=== PATIENT | female | born 1990 | race American Indian/Alaskan Native ===

== ENCOUNTER 2018-08-24 09:32 | Emergency (ER) | payer OTHER ==
[2018-08-24 10:05] LABS: Basophils % (Auto) 0.4 % (0.0-1.8); Eosinophils # (Auto) 0.3 K/mm3 (0.0-0.4); Eosinophils % (Auto) 3.5 % (0.0-4.3); Hematocrit 40.3 % (30.3-42.9); Lymphocytes # (Auto) 2.2 K/mm3 (1.2-5.4); Lymphocytes % (Auto) 26.5 % (13.4-35.0); Mean Corpuscular HGB Conc 35 % (30-34); Mean Corpuscular Volume 94 fl (79-97); Monocytes # (Auto) 0.6 K/mm3 (0.0-0.8); Monocytes % (Auto) 7.6 % (0.0-7.3); Platelet Count 247 K/mm3 (140-440); Red Blood Count 4.27 M/mm3 (3.65-5.03); Red Cell Distribution Width 14.1 % (13.2-15.2)
[2018-08-24] MEDS ORDERED: TORADOL IV ONE (10:46)
[2018-08-24] MEDS ORDERED: MORPHINE IV ONE (10:46)
[2018-08-24] MEDS ORDERED: NACL 0.9% 1000 ML 1,000 ML IV ONE (10:46)
[2018-08-24] MEDS ORDERED: ZOFRAN IV ONE (10:46)
--- NOTE | 2018-08-24 10:52 | Emergency Department Report ---
ED Abdominal Pain HPI - General Chief Complaint: Urogenital-Female Stated Complaint: ABD PAIN/VAGINAL BLEEDING Time Seen by Provider: 08/24/18 10:12 Source: patient, EMS Mode of arrival: Stretcher Limitations: No Limitations - History of Present Illness Initial Comments: Mrs. Jacob is a 27 yo female without significant past medical history who presents with severe sudden onset of RLQ pain/right groin pain. She also has vaginal bleeding. She does not recall if this is normal time for her menses. Sharp severe 10/10 pain worse with movement and palpation. No preceding fever, vomiting, diarrhea. MD Complaint: abdominal pain -: Sudden, This morning Location: RLQ Severity: severe Severity scale (0 -10): 10 Quality: sharp Consistency: constant Improves With: nothing Worsens With: nothing Associated Symptoms: other (vaginal bleeding) - Related Data Previous Rx's Medication Instructions Recorded Last Taken Type Ibuprofen [Motrin 800 MG tab] 800 mg PO Q8HR PRN #15 tablet 08/24/18 Unknown Rx Promethazine [Phenergan] 25 mg PO Q6HR PRN #10 tab 08/24/18 Unknown Rx traMADol [Ultram 50 MG tab] 50 mg PO Q4HR PRN #10 tablet 08/24/18 Unknown Rx Allergies Allergy/AdvReac Type Severity Reaction Status Date / Time No Known Allergies Allergy Unverified 08/24/18 09:42 ED Review of Systems ROS: Stated complaint: ABD PAIN/VAGINAL BLEEDING Other details as noted in HPI Comment: All other systems reviewed and negative Constitutional: denies: fever, malaise Respiratory: denies: cough Cardiovascular: denies: chest pain Gastrointestinal: abdominal pain ED Past Medical Hx - Past Medical History Previous Medical History?: Yes Additional medical history: 2 abortions - Surgical History Past Surgical History?: Yes - Social History Smoking Status: Current Every Day Smoker Substance Use Type: Alcohol - Medications Home Medications: Home Medications Medication Instructions Recorded Confirmed Last Taken Type Ibuprofen [Motrin 800 MG tab] 800 mg PO Q8HR PRN #15 tablet 08/24/18 Unknown Rx Promethazine [Phenergan] 25 mg PO Q6HR PRN #10 tab 08/24/18 Unknown Rx traMADol [Ultram 50 MG tab] 50 mg PO Q4HR PRN #10 tablet 08/24/18 Unknown Rx ED Physical Exam - General Limitations: No Limitations General appearance: alert, other (appears in pain) - Head Head exam: Present: atraumatic, normocephalic - Eye Eye exam: Present: normal appearance - ENT ENT exam: Present: mucous membranes moist - Neck Neck exam: Present: normal inspection, full ROM - Respiratory Respiratory exam: Present: normal lung sounds bilaterally. Absent: respiratory distress, wheezes, rales, rhonchi - Cardiovascular Cardiovascular Exam: Present: regular rate, normal rhythm, normal heart sounds. Absent: systolic murmur, diastolic murmur, rubs, gallop - GI/Abdominal GI/Abdominal exam: Present: soft, normal bowel sounds. Absent: distended, tenderness, guarding, rebound - Extremities Exam Extremities exam: Present: normal inspection - Back Exam Back exam: Present: normal inspection - Neurological Exam Neurological exam: Present: alert, oriented X3 - Psychiatric Psychiatric exam: Present: normal affect, normal mood - Skin Skin exam: Present: warm, dry, intact, normal color. Absent: rash ED Course Vital Signs 08/24/18 08/24/18 08/24/18 09:45 09:59 11:00 Temperature 97.7 F Pulse Rate 93 H 80 Respiratory 20 14 20 Rate Blood Pressure 118/84 Blood Pressure 121/82 [Right] O2 Sat by Pulse 100 99 Oximetry 08/24/18 08/24/18 08/24/18 11:04 12:22 13:15 Temperature Pulse Rate 72 76 87 Respiratory 18 16 14 Rate Blood Pressure Blood Pressure 119/69 108/58 116/56 [Right] O2 Sat by Pulse 99 98 98 Oximetry ED Medical Decision Making - Lab Data Result diagrams: 08/24/18 09:57 08/24/18 09:47 Laboratory Results - last 24 hr 08/24/18 08/24/18 08/24/18 09:47 09:57 09:57 WBC 8.5 RBC 4.27 Hgb 14.0 Hct 40.3 MCV 94 MCH 33 H MCHC 35 H RDW 14.1 Plt Count 247 Lymph % (Auto) 26.5 Swain % (Auto) 7.6 H Eos % (Auto) 3.5 Baso % (Auto) 0.4 Lymph # 2.2 Swain # 0.6 Eos # 0.3 Baso # 0.0 Seg Neutrophils % 62.0 Seg Neutrophils # 5.2 Sodium 139 Potassium 4.0 Chloride 105.2 Carbon Dioxide 20 L Anion Gap 18 BUN 11 Creatinine 0.8 Estimated GFR > 60 BUN/Creatinine Ratio 14 Glucose 92 Calcium 9.1 HCG, Qual HCG, Quant < 2 Urine Color Urine Turbidity Urine pH Ur Specific [place] Urine Protein Urine Glucose (UA) Urine Ketones Urine Blood Urine Nitrite Urine Bilirubin Urine Urobilinogen Ur Leukocyte Esterase Urine WBC (Auto) Urine RBC (Auto) U Epithel Cells (Auto) Urine Bacteria (Auto) Urine Mucus Blood Type 08/24/18 08/24/18 08/24/18 09:57 09:57 10:55 WBC RBC Hgb Hct MCV MCH MCHC RDW Plt Count Lymph % (Auto) Swain % (Auto) Eos % (Auto) Baso % (Auto) Lymph # Swain # Eos # Baso # Seg Neutrophils % Seg Neutrophils # Sodium Potassium Chloride Carbon Dioxide Anion Gap BUN Creatinine Estimated GFR BUN/Creatinine Ratio Glucose Calcium HCG, Qual Negative HCG, Quant Urine Color Yellow Urine Turbidity Clear Urine pH 8.0 H Ur Specific [place] 1.011 Urine Protein <15 mg/dl Urine Glucose (UA) Neg Urine Ketones Neg Urine Blood Lg Urine Nitrite Neg Urine Bilirubin Neg Urine Urobilinogen < 2.0 Ur Leukocyte Esterase Neg Urine WBC (Auto) < 1.0 Urine RBC (Auto) 5.0 U Epithel Cells (Auto) 1.0 Urine Bacteria (Auto) 2+ Urine Mucus Few Blood Type O POSITIVE - Radiology Data Radiology results: report reviewed interpreted by me: Transvaginal ultrasound remarkable for complex 3 cm left ovarian cyst, 2 small uterine fibroids, CT abdomen and pelvis negative for acute inflammatory process confirmation of complex left ovarian cyst with possible hydrosalpinx - Medical Decision Making Ms. Jacob presents with pelvic pain due to ovarian cyst and uterine fibroids possible dysmenorrhea. Referred to OBGYN labs reviewed all within normal limits, including normal white blood cell count and negative test Critical care attestation.: If time is entered above; I have spent that time in minutes in the direct care of this critically ill patient, excluding procedure time. ED Disposition Clinical Impression: Ovarian cyst, Uterine fibroid, Dysmenorrhea Disposition: TO HOME OR SELFCARE Is pt being admited?: No Does the pt Need Aspirin: No Condition: Stable Instructions: Dysmenorrhea (ED), Ovarian Cyst (ED), Uterine Fibroids (ED) Prescriptions: Ibuprofen [Motrin 800 MG tab] 800 mg PO Q8HR PRN #15 tablet PRN Reason: Pain , Severe (7-10) Promethazine [Phenergan] 25 mg PO Q6HR PRN #10 tab PRN Reason: Nausea traMADol [Ultram 50 MG tab] 50 mg PO Q4HR PRN #10 tablet PRN Reason: Pain Referrals: CAROLA BLACK MD [Primary Care Provider] - 3-5 Days
[2018-08-24 11:01] LABS: BUN/Creatinine Ratio 14; Blood Urea Nitrogen 11 mg/dL (7-17); Calcium 9.1 mg/dL (8.4-10.2); Hemolysis Index 26
[2018-08-24 11:59] LABS: Bacteria,Urine 2+ /HPF (Negative); Bilirubin,Urine NEG (Negative); Blood,Urine LG (Negative); Color,Urine Yellow (Yellow); Mucus,Urine FEW /HPF; Protein,Urine <15 mg/dL mg/dL (Negative); Urobilinogen,Urine < 2.0 mg/dL (<2.0); WBC,Urine < 1.0 /HPF (0.0-6.0)
[2018-08-24 13:19] VITALS: BP 116/56
--- NOTE | 2018-08-24 13:25 | Cat Scan Report ---
PROCEDURE: CT ABDOMEN PELVIS W CON TECHNIQUE: Computerized axial tomography of the abdomen and pelvis was performed after the IV inject ion of iodinated nonionic contrast. HISTORY: RLQ pain vaginal bleeding COMPARISONS: None . FINDINGS: Visualized lower thorax: No significant abnormality. Liver: Normal size and attenuation. Spleen: Normal size and attenuation. Gallbladder and biliary system: Normal. Pancreas: Normal. Adrenals: Normal. Kidneys: There is no hydronephrosis bilaterally. There is symmetric excretion seen on the delayed chang ges. The distal right ureter is not well delineated. Along the course of the distal right ureter there is a focal calcification with central lucency favored to be related to phlebolith, as there is no proximal ureteral obstruction. GI tract: No appendiceal inflammation. No bowel obstruction or inflammation . Lymph nodes and mesentery: Normal. Vasculature: Normal.. Bladder: Normal. Reproductive organs: Complex 2 cm left ovarian cyst. Possible left hydrosalpinx Peritoneum: No free fluid. Musculoskeletal structures: No significant abnormality. Other: None . IMPRESSION: No acute inflammatory process is seen. No hydronephrosis or definitive urolithiasis. Focal calcification in the right pelvis is favored to b e related to a pelvic phlebolith . Complex 2 cm left ovarian cyst. Possible left hydrosalpinx This document is electronically signed by Shoshana Mckeon MD., Aug 24 2018 01:23:01 PM ET
--- NOTE | 2018-08-24 13:34 | Ultrasound Report ---
PROCEDURE: US TRANSVAGINAL TECHNIQUE: Real-time transvaginal sonography in multiple planes of the pelvis was performed with chang ge documentation. Grayscale, color flow Doppler imaging and velocity spectral waveform analysis of th e ovaries was employed (duplex imaging). HISTORY: RLQ pain vaginal bleeding COMPARISONS: None FINDINGS: UTERUS Size: 8.7 x 4.0 x 5.0 cm. Endometrial thickness: 4.4 mm. Orientation: Anteverted. Cervix: Nabothian cysts are noted. Fibroids/masses: 2 fibroids are seen. There is one in the fundus which measures up to 1.5 cm. There i s one in the anterior body which measures up to 1.7 cm. RIGHT Ovary: 4.0 x 1.6 x 3.4 cm. Appearance: Normal. Doppler images: Normal spectral waveforms and color flow images of the arterial inflow and venous out flow.. LEFT Ovary: 4.2 x 3.4 x 4.2 cm. Appearance: There is a complex cyst which measures 3.2 x 2.4 x 2.6 cm. Doppler images: Normal spectral waveforms and color flow images of the arterial inflow and venous out flow... Pelvic fluid: None. IMPRESSION: Complex left ovarian cyst measuring up to 3.2 cm. 2 small uterine fibroids are present as described above. This document is electronically signed by Shoshana Mckeon MD., Aug 24 2018 01:32:09 PM ET
[2018-08-24] MEDS ORDERED: NORCO 5/325 PO ONE (13:56)
== END 2018-08-24 14:02 | disposition home or self-care (01) ==
LOC: ED 09:32
DX: N83.202 Unspecified ovarian cyst, left side (principal); D25.9 Leiomyoma of uterus, unspecified; N94.6 Dysmenorrhea, unspecified; F17.200 Nicotine dependence, unspecified, uncomplicated
CPT/HCPCS: 36415; 74177; 76830; 80048; 81001; 84702; 84703; 85025; 86900; 86901; 96374; 96375; 99285; J1885; J2270; J2405; J7030; Q9967

== ENCOUNTER 2018-10-03 11:06 | Emergency (ER) | payer SELFPAY ==
[2018-10-03 11:27] VITALS: BP 109/73
--- NOTE | 2018-10-03 11:50 | Emergency Department Report ---
ED Back Pain/Injury HPI - General Chief Complaint: Extremity Injury, Lower Stated Complaint: LT ANKLE INJURY Time Seen by Provider: 10/03/18 11:36 Source: patient Limitations: No Limitations - History of Present Illness Initial Comments: PT COMES TO ER WITH L FOOT AND ANKLE PAIN P PLAYING WITH HER KIDS YESTERDAY. SHE CAN WALK BUT LIMITED WITH PAIN. DID NOT TAKE ANY MEDS AT HOME TO MAKE IT FEEL BETTER. NO OTHER INJURY. - Related Data Previous Rx's Medication Instructions Recorded Last Taken Type Ibuprofen [Motrin 800 MG tab] 800 mg PO Q8HR PRN #15 tablet 08/24/18 Unknown Rx Promethazine [Phenergan] 25 mg PO Q6HR PRN #10 tab 08/24/18 Unknown Rx traMADol [Ultram 50 MG tab] 50 mg PO Q4HR PRN #10 tablet 08/24/18 Unknown Rx Allergies Allergy/AdvReac Type Severity Reaction Status Date / Time No Known Allergies Allergy Verified 10/03/18 11:07 ED Review of Systems ROS: Stated complaint: LT ANKLE INJURY Other details as noted in HPI Comment: All other systems reviewed and negative ED Past Medical Hx - Past Medical History Medical history: no medical history 2 abortions ED Back Pain Physical Exam - Exam General: Vital signs noted. No distress. Alert and acting appropriately. DP/PT PLUS 2 BILATERAL MILD LAT. MAL. SWELLING OF L ANKLE RAPID CAP REFILL AMBULATION LIMITED BY PAIN TIB FIB WITHOUT PAIN ON PALPATION SENSATION INTACT Back/Abdomen: No Abdominal Tenderness, No Perithoracic Tenderness, No Perilumbar Tenderness, No Sacroiliac Tenderness, No Flank Tenderness, No Straight Leg Raise Pain Neuro: Yes Normal Sensation, Yes Normal DTR's, Yes Normal Gait, No Motor Weakness ED Course Vital Signs 10/03/18 11:25 Temperature 98 F Pulse Rate 87 Respiratory 16 Rate Blood Pressure 109/73 O2 Sat by Pulse 98 Oximetry Ed Back Pain Tests - Tests Tests: Normal X Rays ED Medical Decision Making - Radiology Data Radiology results: report reviewed, image reviewed - Medical Decision Making EXAM WNL- SEE PE XRAY WITHOUT FRACTURE MEDICATED WITH MOTRIN ZOHAIB/CRUTCH FOR COMFORT FOLLOW UP WITH DR SCHAFFER NEUROVASC INTACT DC HOME WITH DC PLAN OF CARE. Vital Signs 10/03/18 11:25 Temperature 98 F Pulse Rate 87 Respiratory 16 Rate Blood Pressure 109/73 O2 Sat by Pulse 98 Oximetry Critical care attestation.: If time is entered above; I have spent that time in minutes in the direct care of this critically ill patient, excluding procedure time. ED Disposition Clinical Impression: Foot sprain Disposition: TO HOME OR SELFCARE Is pt being admited?: No Does the pt Need Aspirin: No Condition: Stable Instructions: Foot Sprain (ED) Additional Instructions: rest ice elevate motrin or tylenol for pain zohaib/crutches for comfort for [address] Schaffer on Saturday if pain persists referral below diet as tolerated MOTRIN OR TYLENOL FOR PAIN Referrals: LYDIA SCHAFFER MD [Staff Physician] - 3-5 Days Time of Disposition: 12:00
[2018-10-03] MEDS ORDERED: IBUPROFEN PO ONE (11:51)
--- NOTE | 2018-10-03 11:54 | XRay Report ---
LEFT ANKLE 3 VIEWS INDICATION: ankle pain. COMPARISON: No relevant prior imaging study available. FINDINGS: No acute fracture or dislocation is seen. No significant soft tissue swelling is seen. No significant degenerative changes. IMPRESSION: 1. No acute findings. Signer Name: Onofre Hudson MD Signed: 10/03/2018 11:50 AM Workstation Name: [id number]
== END 2018-10-03 12:35 | disposition home or self-care (01) ==
LOC: ED 11:06
DX: S93.602A Unspecified sprain of left foot, initial encounter (principal); X58.XXXA Exposure to other specified factors, initial encounter; Y93.89 Activity, other specified; Y92.89 Other specified places as the place of occurrence of the external cause; Y99.8 Other external cause status